=== PATIENT | female | born 1970 | race Caucasian/White ===

== ENCOUNTER 2020-05-27 04:39 | Day surgery (SDC) | payer OTHER ==
[2020-05-23 17:31] VITALS: BMI 24.4
[2020-05-27] MEDS ORDERED: EPHEDRINE SULFATE/0.9% NACL/PF 50 MG/10 ML SYRINGE NR ONE (07:19)
[2020-05-27] MEDS ORDERED: SUCCINYLCHOLINE CHLORIDE 200 MG/10 ML SYRINGE ONE (07:19)
[2020-05-27] MEDS ORDERED: ATROPINE SULFATE 1 MG/10 ML DISP.SYRIN ONE (07:19)
[2020-05-27] MEDS ORDERED: MIDAZOLAM HCL 2 MG/2 ML SINGLE DOSE VIAL ONE (07:19)
[2020-05-27] MEDS ORDERED: PROPOFOL 20 ML ONE (07:19)
[2020-05-27] MEDS ORDERED: ACETAMINOPHEN 325 MG TABLET (FP) PO PRN (07:52)
[2020-05-27] MEDS ORDERED: IBUPROFEN 400 MG TABLET (FP) PO PRN (07:52)
--- NOTE | 2020-05-27 07:52 | HP ---
History & Physical Update - History History: No Change - Physical Physical: No Change - Assessment Assessment: No Change - Plan Plan: No Change (No change in HP)
--- NOTE | 2020-05-27 07:54 | HP ---
Satellite [facility] - Chief Complaint Chief Complaint: Submucosal myoma History Source: Patient Limitations to Obtaining History: No Limitations - Past Medical History Allergies/Adverse Reactions: Allergies Allergy/AdvReac Type Severity Reaction Status Date / Time No Known Allergies Allergy Verified 05/23/20 17:31 ...LMP: 05/09/20 - Current Medications Current Medications: Home Medications Medication Instructions Recorded Ascorbic Acid [Vitamin C] 1,000 mg PO DAILY 05/23/20 Cholecalciferol (Vitamin D3) 400 unit PO DAILY 05/23/20 [Vitamin D3 -] Clonazepam [Klonopin] 1 mg PO BID 05/23/20 Lamotrigine 100 mg PO DAILY 05/23/20 Mirtazapine 30 mg PO DAILY 05/23/20 Satellite Physical Exam - Physical Examination Vital Signs: Vital Signs Period Temp Pulse Resp BP Sys/Dinh Pulse Ox Last 24 Hr 97.8 F 88 20 128/88 100-100 General Appearance: Well Nourished, Well Developed Heart: Regular rate & rhythm Breasts: Soft, Non-Tender Abdomen: Soft, No tenderness, No hepatosplenomegaly Extremities: No edema Pelvic Exam: Within normal limits External Genitalia, Within normal limits Vagina, Within normal limits Cervix, Within normal limits [place], Other Uterus Neurological: Intact, Alert, Oriented Satellite Impression/Plan - Impression/Plan Impression: submucosal myoma Operative Procedure: Hysteroscopic myomectomy. DC Date to be Performed: 05/27/20
[2020-05-27] MEDS ORDERED: oxyCODONE HCL 5 MG TABLET PO PRN ×2 (10:50)
[2020-05-27] MEDS ORDERED: ONDANSETRON 4 MG/2 ML VIAL IVPUSH PRN (10:50)
[2020-05-27] MEDS ORDERED: LACTATED RINGERS SOLUTION 1,000 ML IV SCH (11:00)
[2020-05-27] MEDS ORDERED: ceFAZolin SODIUM 1 GM VIAL ONE (11:08)
[2020-05-27] MEDS ORDERED: KETOROLAC TROMETHAMINE 30 MG/1 ML VIAL ONE (11:08)
[2020-05-27] MEDS ORDERED: DEXAMETHASONE SOD PHOSPHATE 4 MG/1 ML VIAL ONE (11:08)
--- NOTE | 2020-05-27 11:16 | OP ---
Operative Note - Note: Operative Date: 05/27/20 Pre-Operative Diagnosis: Submucous myoma. Leiomyomatous uterus Operation: Hysteroscopic myomectomy. suction DC Findings: submucosal myoma removed Post-Operative Diagnosis: Same as Pre-op Surgeon: Marleny Correia Anesthesia: General Estimated Blood Loss (mls): 10 Operative Report Dictated: Yes
--- NOTE | 2020-05-27 12:09 | OP ---
DATE OF OPERATION: 05/27/2020 PREOPERATIVE DIAGNOSIS: Submucosal myoma, menorrhagia. OPERATION: Hysteroscopic myomectomy and suction dilation and curettage. POSTOPERATIVE DIAGNOSIS: Submucosal myoma, menorrhagia. SURGEON: Marleny Correia MD ANESTHESIA: General. ESTIMATED BLOOD LOSS: 10 mL PROCEDURE: Patient was taken to the operating room, placed in the dorsal lithotomy position, prepped and draped in the usual sterile fashion. Timeout was performed in accordance with hospital regulation. Speculum was placed to the vagina. Anterior lip of the cervix was grasped with single-tooth tenaculum. Cervix was then dilated to accommodate the operative hysteroscope. Visualization revealed endometrial polyps and submucosal myoma. Cautery and cutting of the submucosal myoma was then done. Specimen was submitted to Pathology, followed by the suction D&C. After the procedure had been repeated multiple times, all instruments were then removed. The patient had tolerated the procedure well and was taken to recovery room in stable condition. MARLENY CORREIA M.D. VIOLETA/[id number]
[2020-05-27 13:18] VITALS: BP 115/78; PULSE 99; TEMP 97.2
--- NOTE | 2020-05-28 16:33 | PATH ---
Surgical Pathology Report Patient Name: ALEX LEHMAN [facility]. Rec. #: [id number] /Age/Gender: 1970 (Age: 50) / F Account: [id number] Location: [facility] SURGICAL Taken: 05/27/2020 Received: 05/27/2020 Reported: 05/28/2020 Physicians: Marleny Correia M.D. Specimen(s) Received A: MYOMAS B: ENDOMETRIAL CURETTINGS Clinical History Fibroids Final Diagnosis A. MYOMAS, HYSTEROSCOPIC MYOMECTOMY: 1 G, FRAGMENTS OF FIBROMUSCULAR TISSUE CONSISTENT WITH SUBMUCOSAL LEIOMYOMA, SCANT SECRETORY ENDOMETRIUM, AND MINUTE SQUAMOUS EPITHELIUM. B. ENDOMETRIAL CURETTINGS, DILATION AND CURETTAGE: FRAGMENTS OF FIBROMUSCULAR TISSUE CONSISTENT WITH SUBMUCOSAL LEIOMYOMA, SECRETORY ENDOMETRIUM, AND MINUTE SQUAMOUS EPITHELIUM. Electronically Signed Gisela Hernandez M.D. Gross Description A. Received in formalin labeled "myomas," is a 1 g, 2.0 x 1.8 x 0.3 cm aggregate of chery, firm to rubbery portions of tissue, consistent with morcellated myoma. The formalin is filtered and the specimen is entirely submitted in one cassette. B. Received in formalin labeled "endometrial curettings," is a 2.8 x 2.5 x 0.3 cm aggregate of chery soft tissue and firm tissue fragments. The formalin is filtered and the specimen is entirely submitted in 2 cassettes. saudi/05/27/2020
== END 2020-05-27 11:45 | disposition home or self-care (01) ==
LOC: JASU-SURG 04:39
PROVIDERS: ATTEND Obstetrics & Gynecology
PROC: 0UJD8ZZ Inspection of Uterus and Cervix, Via Natural or Artificial Opening Endoscopic (ICD-10-PCS; 2020-05-27)
PROC: 0UB98ZZ Excision of Uterus, Via Natural or Artificial Opening Endoscopic (ICD-10-PCS; principal; 2020-05-27 07:30)
PROC: 0UDB7ZX Extraction of Endometrium, Via Natural or Artificial Opening, Diagnostic (ICD-10-PCS; 2020-05-27 07:30)
DX: N92.0 Excessive and frequent menstruation with regular cycle (principal); D25.0 Submucous leiomyoma of uterus
CPT/HCPCS: 84703; 88305-TC; 94760

== ENCOUNTER 2021-03-31 05:28 | Day surgery (SDC) | payer OTHER ==
[2021-03-28 14:17] VITALS: BMI 24.6
[2021-03-31] MEDS ORDERED: SUCCINYLCHOLINE CHLORIDE 200 MG/10 ML SYRINGE ONE (07:01)
[2021-03-31] MEDS ORDERED: PROPOFOL 20 ML ONE (07:01)
[2021-03-31] MEDS ORDERED: EPHEDRINE SULFATE/0.9% NACL/PF 50 MG/10 ML SYRINGE NR ONE (07:01)
[2021-03-31] MEDS ORDERED: ROCURONIUM BROMIDE 50 MG/5 ML SYRINGE ONE (07:01)
[2021-03-31] MEDS ORDERED: DESFLURANE GAS 240 ML BOTTLE IH ONE (07:01)
[2021-03-31] MEDS ORDERED: MIDAZOLAM HCL 2 MG/2 ML SINGLE DOSE VIAL ONE (07:01)
[2021-03-31] MEDS ORDERED: LIDOCAINE HCL/PF 2% SDV 5ML VIAL ONE (07:05)
[2021-03-31] MEDS ORDERED: ceFAZolin SODIUM 1 GM VIAL IVPB ONE (08:00)
[2021-03-31] MEDS ORDERED: ceFAZolin SODIUM 1 GM VIAL ONE (08:00)
[2021-03-31] MEDS ORDERED: HYDROmorphone HCl 2 MG/ML VIAL ONE (08:13)
[2021-03-31] MEDS ORDERED: NEOSTIGMINE METHYLSULFATE 0.5 MG/ML - 10 ML MDV ONE (08:31)
[2021-03-31] MEDS ORDERED: GLYCOPYRROLATE 0.2 MG/1 ML VIAL ONE (08:32)
[2021-03-31] MEDS ORDERED: TRANEXAMIC ACID 1000 MG/10 ML VIAL ONE (08:32)
[2021-03-31] MEDS ORDERED: DEXAMETHASONE SOD PHOSPHATE 4 MG/1 ML VIAL ONE (08:33)
[2021-03-31] MEDS ORDERED: KETOROLAC TROMETHAMINE 30 MG/1 ML VIAL ONE (08:33)
[2021-03-31] MEDS ORDERED: ONDANSETRON 4 MG/2 ML VIAL IVPUSH PRN (09:30)
[2021-03-31] MEDS ORDERED: LACTATED RINGERS SOLUTION 1,000 ML IV SCH (09:30)
[2021-03-31] MEDS ORDERED: oxyCODONE HCL 5 MG TABLET PO PRN ×2 (09:30)
[2021-03-31 15:00] VITALS: BP 118/69; PULSE 72; TEMP 97.9
== END 2021-03-31 13:40 | disposition home or self-care (01) ==
LOC: JASU-SURG 05:28
PROVIDERS: ATTEND Obstetrics & Gynecology
PROC: 0UDB8ZX Extraction of Endometrium, Via Natural or Artificial Opening Endoscopic, Diagnostic (ICD-10-PCS; principal; 2021-03-31 07:30)
PROC: 0UB04ZZ Excision of Right Ovary, Percutaneous Endoscopic Approach (ICD-10-PCS; 2021-03-31 07:30)
PROC: 0UB54ZZ Excision of Right Fallopian Tube, Percutaneous Endoscopic Approach (ICD-10-PCS; 2021-03-31 07:30)
DX: D25.0 Submucous leiomyoma of uterus (principal); N83.201 Unspecified ovarian cyst, right side
CPT/HCPCS: 81025; 88305-TC; 88307-TC; 94760

== ENCOUNTER 2023-07-13 04:39 | Day surgery (SDC) | payer OTHER ==
[2023-07-07 12:23] VITALS: BMI 23.7
[2023-07-13 12:33] VITALS: TEMP 97.8
[2023-07-13 12:45] VITALS: RESP 17
[2023-07-13 12:58] VITALS: BP 132/80; PULSE 81
== END 2023-07-13 13:17 | disposition home or self-care (01) ==
LOC: JASU-ENDO 04:39
PROVIDERS: ATTEND Internal Medicine Gastroenterology
PROC: 0DB78ZX Excision of Stomach, Pylorus, Via Natural or Artificial Opening Endoscopic, Diagnostic (ICD-10-PCS; 2023-07-13)
PROC: 0DB68ZX Excision of Stomach, Via Natural or Artificial Opening Endoscopic, Diagnostic (ICD-10-PCS; principal; 2023-07-13 11:00)
DX: K31.7 Polyp of stomach and duodenum (principal); K29.50 Unspecified chronic gastritis without bleeding
CPT/HCPCS: 88305-TC; 88342-TC

== ENCOUNTER 2024-01-11 04:49 | Day surgery (SDC) | payer OTHER ==
[2024-01-10 11:20] VITALS: BMI 23.9
[2024-01-11 09:52] VITALS: TEMP 97.7
[2024-01-11 10:27] VITALS: RESP 17
[2024-01-11 10:28] VITALS: BP 125/76; PULSE 80
== END 2024-01-11 10:26 | disposition home or self-care (01) ==
LOC: JASU-ENDO 04:49
PROVIDERS: ATTEND Internal Medicine Gastroenterology
PROC: 0DJD8ZZ Inspection of Lower Intestinal Tract, Via Natural or Artificial Opening Endoscopic (ICD-10-PCS; principal; 2024-01-11 08:45)
DX: K64.8 Other hemorrhoids (principal)

== ENCOUNTER 2024-11-16 03:45 | Day surgery (SDC) | payer OTHER ==
[2024-11-14 09:32] VITALS: BMI 24.4
[2024-11-16] MEDS ORDERED: ONDANSETRON 4 MG/2 ML VIAL IVPUSH PRN (07:55)
[2024-11-16] MEDS ORDERED: oxyCODONE HCL 5 MG TABLET PO PRN (07:55)
[2024-11-16] MEDS ORDERED: LIDOCAINE 1%/EPI 1:100000 (20 ML MULTI DOSE VIAL) ONE (12:14)
[2024-11-16] MEDS ORDERED: PROPOFOL 20 ML ONE (12:44)
[2024-11-16] MEDS ORDERED: LIDOCAINE HCL/PF 2% SDV 5ML VIAL ONE (12:44)
[2024-11-16] MEDS ORDERED: MIDAZOLAM HCL 2 MG/2 ML SINGLE DOSE VIAL ONE (12:45)
[2024-11-16] MEDS ORDERED: ROCURONIUM BROMIDE 50 MG/5 ML SYRINGE ONE (12:45)
[2024-11-16] MEDS ORDERED: ESMOLOL 2500 MG/250 ML 2,500,000 MCG/250 ML INFUS.BAG IVPB ONE (13:27)
[2024-11-16] MEDS: ceFAZolin SODIUM 1 GM VIAL IVPB ONE (14:07)
[2024-11-16] MEDS ORDERED: SUGAMMADEX SODIUM 200 MG/2 ML VIAL ONE (14:16)
[2024-11-16] MEDS: LACTATED RINGERS SOLUTION 1,000 ML IV SCH (14:35)
[2024-11-16 16:05] VITALS: TEMP 98.2
[2024-11-16 17:19] VITALS: BP 136/88; PULSE 91; RESP 18
== END 2024-11-16 17:05 | disposition home or self-care (01) ==
LOC: JASU-SURG 03:45
PROVIDERS: ATTEND Otolaryngology
PROC: 09BU8ZZ Excision of Right Ethmoid Sinus, Via Natural or Artificial Opening Endoscopic (ICD-10-PCS; 2024-11-16)
PROC: 09BL8ZX Excision of Nasal Turbinate, Via Natural or Artificial Opening Endoscopic, Diagnostic (ICD-10-PCS; 2024-11-16)
PROC: 099Q8ZZ Drainage of Right Maxillary Sinus, Via Natural or Artificial Opening Endoscopic (ICD-10-PCS; principal; 2024-11-16 12:30)
DX: J32.0 Chronic maxillary sinusitis (principal); J32.2 Chronic ethmoidal sinusitis; J32.3 Chronic sphenoidal sinusitis; J34.89 Other specified disorders of nose and nasal sinuses
CPT/HCPCS: 87070; 87102; 87107; 87186; 87205; 87210; 88304-TC; 88305-TC; 88312-TC; 94760